=== PATIENT | female | born 1985 | race African-American/Black ===

== ENCOUNTER 2020-10-25 11:47 | Emergency (ER) | payer OTHER ==
[~2020-10-25] VITALS: Ht 162.6 cm; Wt 127.3 kg
[2020-10-25] MEDS ORDERED: BACITRACIN 0.9 GM PACKET OINTMENT TP ONE (12:30)
[2020-10-25] MEDS ORDERED: PERTUSS(ACELL),DIPH,TET VAC/PF 0.5 ML SYRINGE IM ONE (12:30)
[2020-10-25] MEDS ORDERED: LIDOCAINE 1% 10 ML VIAL SQ ONE (12:30)
[2020-10-25 13:26] VITALS: BP 136/77
== END 2020-10-25 13:35 | disposition home or self-care (01) ==
LOC: EMS 11:47
DX: S01.81XA Laceration without foreign body of other part of head, initial encounter (principal); W01.0XXA Fall on same level from slipping, tripping and stumbling without subsequent striking against object, initial encounter; Y93.89 Activity, other specified; Y92.098 Other place in other non-institutional residence as the place of occurrence of the external cause; Y99.8 Other external cause status
CPT/HCPCS: 12013; 90471; 90715; 99283; J3490

== ENCOUNTER 2020-11-01 14:42 | Emergency (ER) | payer OTHER ==
[~2020-11-01] VITALS: Ht 162.6 cm; Wt 127.3 kg
[2020-11-01 14:46] VITALS: BP 116/46
== END 2020-11-01 15:21 | disposition home or self-care (01) ==
LOC: EMS 14:57
DX: S01.81XD Laceration without foreign body of other part of head, subsequent encounter (principal); X58.XXXD Exposure to other specified factors, subsequent encounter
CPT/HCPCS: 99281; Z7502

== ENCOUNTER 2022-03-26 14:35 | Emergency (ER) | payer MEDICAID, OTHER ==
[~2022-03-26] VITALS: Ht 162.6 cm; Wt 127.0 kg
[2022-03-26] MEDS ORDERED: OXYC-43 PO (14:50)
[2022-03-26] MEDS ORDERED: MELO5CAP3 PO (14:50)
[2022-03-26] MEDS ORDERED: TIZA-211 PO (14:50)
[2022-03-26] MEDS ORDERED: CEPH-558 PO (17:52)
[2022-03-26 17:59] VITALS: BP 112/83
== END 2022-03-26 18:02 | disposition home or self-care (01) ==
LOC: EMS 14:49
DX: Z00.00 Encounter for general adult medical examination without abnormal findings (principal); F17.210 Nicotine dependence, cigarettes, uncomplicated; Z79.899 Other long term (current) drug therapy
CPT/HCPCS: 99281; Z7502

== ENCOUNTER 2023-11-13 09:07 | Emergency (ER) | payer MEDICAID ==
[~2023-11-13] VITALS: Ht 162.6 cm; Wt 127.3 kg
[~2023-11-13 09:07] MED LIST: CEPH-558 PO; MELO5CAP3 PO; OXYC-43 PO; TIZA-211 PO
[2023-11-13 09:15] VITALS: TEMP 98.3
[2023-11-13] MEDS: METHOCARBAMOL 500 MG TABLET PO ONE (10:33)
[2023-11-13] MEDS: OxyCODONE HCL/ACETAMINOPHEN 5-325 MG TABLET PO ONE (10:33)
[2023-11-13] MEDS: KETOROLAC TROMETHAMINE 60 MG/2 ML VIAL IM ONE (10:34)
[2023-11-13] MEDS ORDERED: IBUP-1492 PO (10:58)
[2023-11-13] MEDS ORDERED: METH-659 PO (10:58)
[2023-11-13] MEDS ORDERED: PERCT PO (10:59)
[2023-11-13 11:10] VITALS: BP 124/72; PULSE 86; RESP 16
== END 2023-11-13 11:31 | disposition home or self-care (01) ==
LOC: EMS 09:08
DX: G89.29 Other chronic pain (principal); M54.50 Low back pain, unspecified; M25.562 Pain in left knee; F17.210 Nicotine dependence, cigarettes, uncomplicated; Z98.890 Other specified postprocedural states
CPT/HCPCS: 99283; 96372; J1885